=== PATIENT | male | born 2000 | race Caucasian/White ===

== ENCOUNTER 2021-11-28 18:45 | Emergency (ER) | payer MEDICAID ==
[~2021-11-28] VITALS: Ht 175.3 cm; Wt 71.0 kg
[2021-11-28] MEDS ORDERED: ACETAMINOPHEN 325MG TABLET PO ONE (20:45)
[2021-11-28] MEDS ORDERED: IBUPROFEN 400MG TABLET PO ONE (20:45)
[2021-11-28 23:47] VITALS: BP 126/77
== END 2021-11-28 23:52 | disposition home or self-care (01) ==
LOC: ER 18:45
DX: M25.571 Pain in right ankle and joints of right foot (principal); R51.9 Headache, unspecified; V29.9XXA Motorcycle rider (driver) (passenger) injured in unspecified traffic accident, initial encounter; Y93.89 Activity, other specified; Y92.89 Other specified places as the place of occurrence of the external cause; Y99.8 Other external cause status
CPT/HCPCS: 73610; 99284